=== PATIENT | male | born 1945 | race Caucasian/White ===

== ENCOUNTER → 2017-06-18 | Outpatient (CLI) | payer MEDICARE, OTHER ==
[~2017-06-18] MED LIST: ANDROGEL1% TP; ASPIRIN 81MG TA81 MG PO; CELEBREX 200MG200 MG PO; FLOMAX 0.4MG C0.4 MG PO; GLIPIZIDE10 MG PO; LISINOPRIL 10MG10 MG PO; LOVAZA1 GM PO; METFORMIN1000 MG PO; METOPROLOL50 MG OR; OMEPRAZOLE20 MG PO; VITAMIN D31000 IU PO; ZOCOR20 MG PO; ZOLOFT100 MG PO; [UNRECOGNIZED DRUG - OTHER] PO
== END ==
LOC: CARL-LAB 08:00
DX: E87.5 Hyperkalemia (principal)